=== PATIENT | female | born 1940 | race Caucasian/White ===

== ENCOUNTER 2017-05-04 22:28 | Emergency (ER) | payer OTHER, BC ==
[2017-05-04 22:52] VITALS: BP 118/60; PULSE 87; TEMP 97.8; BMI 26.5
--- NOTE | 2017-05-04 22:55 | PDOC ---
History of Present Illness - General Chief Complaint: Injury Stated Complaint: FALL Time Seen by Provider: 05/04/17 22:54 - History of Present Illness Initial Comments: 05/04/17 22:54 Ms. De La Vega is a 76 yo female with a significant past medical history of recent fall yesterday who presents to the emergency department following a second fall this evening after she had some benadryl for a cold and woke up in the middle of the night to fix her bed. Per sister she did not lose conciousness but was "groggy" during the 2nd fall. Patient does not recall 2nd fall. The patient denies chest pain, shortness of breath, headache and dizziness. Denies fever, chills, nausea, vomit, diarrhea and constipation. Denies dysuria, frequency, urgency and hematuria. Allergies: NKDA Past surgical history: Denies 05/04/17 23:32 Past History - Past Medical History Allergies/Adverse Reactions: Allergies Allergy/AdvReac Type Severity Reaction Status Date / Time No Known Drug Allergies Allergy Verified 05/04/17 22:41 Home Medications: Ambulatory Orders Diphenhydra/Phenyleph/Acetamin [Delsym Cough+Cold Nighttime Lq] 10 ml PO QID 07/09 Diphenhydramine [Benadryl -] 50 mg PO ONCE 05/04/17 Anemia: No Asthma: No Cancer: Yes (LEFT BREAST CA LUMPECTOMY 1990) Cardiac Disorders: No CVA: No COPD: No CHF: No Dementia: No Diabetes: No GI Disorders: No Disorders: No HTN: No Hypercholesterolemia: No Liver Disease: No Seizures: No Thyroid Disease: No Other medical history: forgetful, hard of hearing - Surgical History Abdominal Surgery: No Appendectomy: No Cardiac Surgery: No Cholecystectomy: No Lung Surgery: No Neurologic Surgery: No Orthopedic Surgery: No - Suicide/Smoking/Psychosocial Hx Smoking History: Never smoked Hx Alcohol Use: No Drug/Substance Use Hx: No Substance Use Type: None Hx Substance Use Treatment: No Review of Systems - Review of Systems Comments:: 05/04/17 22:56 GENERAL/CONSTITUTIONAL: No fever or chills. No weakness. HEAD, EYES, EARS, NOSE AND THROAT: No change in vision. No ear pain or discharge. No sore throat. CARDIOVASCULAR: No chest pain or shortness of breath RESPIRATORY: +Recent slight cough, No wheezing, or hemoptysis. GASTROINTESTINAL: No nausea, vomiting, diarrhea or constipation. GENITOURINARY: No dysuria, frequency, or change in urination. MUSCULOSKELETAL: No joint or muscle swelling or pain. No neck or back pain. SKIN: No rash NEUROLOGIC: No headache, vertigo, loss of consciousness, or change in strength/ sensation. ENDOCRINE: No increased thirst. No abnormal weight change HEMATOLOGIC/LYMPHATIC: No anemia, easy bleeding, or history of blood clots. ALLERGIC/IMMUNOLOGIC: No hives or skin allergy. *Physical Exam - Vital Signs Last Vital Signs Temp Pulse Resp BP Pulse Ox 97.8 F 87 18 118/60 98 05/04/17 22:43 05/04/17 22:43 05/04/17 22:43 05/04/17 22:43 05/04/17 22:43 - Physical Exam Comments: 05/04/17 22:57 GENERAL: Awake, alert, and fully oriented, in no acute distress HEAD: +Signs of recent fall with abbrasions to nose and cheek. Well healing and 1 day old. Normocephalic EYES: PERRLA, EOMI, sclera anicteric, conjunctiva clear ENT: Auricles normal inspection, hearing grossly normal, nares patent, oropharynx clear without exudates. Moist mucosa NECK: Normal ROM, supple, no lymphadenopathy, JVD, or masses LUNGS: No distress, speaks full sentences, clear to auscultation bilaterally HEART: Regular rate and rhythm, normal S1 and S2, no murmurs, rubs or gallops, peripheral pulses normal and equal bilaterally. ABDOMEN: Soft, nontender, normoactive bowel sounds. No guarding, no rebound. No masses EXTREMITIES: Normal inspection, Normal range of motion, no edema. No clubbing or cyanosis. NEUROLOGICAL: Cranial nerves II through XII grossly intact. Normal speech, normal gait, no focal sensorimotor deficits SKIN: Warm, Dry, normal turgor, no rashes or lesions noted. ED Treatment Course - LABORATORY CBC & Chemistry Diagram: 05/04/17 23:30 05/04/17 23:19 Medical Decision Making - Medical Decision Making 05/04/17 23:36 Ms. De La Vega is resting comfortably in bed and said to be at baseline by sister. Observed to successfully ambulate; in no acute distress. Will r/o cardiac pathology as this is 2nd fall in 2 days. *DC/Admit/Observation/Transfer Diagnosis at time of Disposition: Fall Qualifiers: Encounter type: initial encounter Qualified Code(s): W19.XXXA - Unspecified fall, initial encounter; W19.XXXA - Unspecified fall, initial encounter Contusion Qualifiers: Encounter type: initial encounter Contusion area: head Contusion of head detail : unspecified part of head Qualified Code(s): S00.93XA - Contusion of unspecified part of head, initial encounter; S00.93XA - Contusion of unspecified part of head, initial encounter - Referrals Referrals: Melina Samson [Primary Care Provider] - - Patient Instructions Printed Discharge Instructions: How to Prevent Falls Additional Instructions: Please follow up with Dr. Samson in the morning, Return if any problems
--- NOTE | 2017-05-04 23:32 | PDOC ---
Attending Attestation - HPI HPI: 05/04/17 23:38 The patient is a 76-year-old female NADEGE with no significant past medical history, and presents to the emergency department s/p second fall in two days. She reports she had a mechanical fall yesterday. Her sister gave the patient Benadryl tonight for a cold before going to bed, and the patient states she fell after waking up in the middle of the night to fix the bed. As per sister, the patient did not lose consciousness and denies any acute head trauma. The patient denies chest pain, shortness of breath, and headache. The patient denies fever, chills, nausea, vomit, diarrhea and constipation. The patient denies dysuria, frequency, urgency and hematuria. Allergies: NKDA Past Surgical History: None reported Social History: No toxic habits reported PCP: Dr. Melina Samson <Roberta Otero - Last Filed: 05/04/17 23:37> - Resident Resident Name: Javed Rowley - ED Attending Attestation I have performed the following: I have examined & evaluated the patient, The case was reviewed & discussed with the resident, I agree w/resident's findings & plan, Exceptions are as noted - Physicial Exam PE: 05/04/17 23:34 *Physical Exam General Appearance: Yes: Appropriately Dressed. No: Apparent Distress, Intoxicated HEENT: positive: EOMI, DYLAN, Normal ENT Inspection, Normal Voice, TMs Normal, Pharynx Normal. negative: Pale Conjunctivae, Photophobia, Scleral Icterus (R), Scleral Icterus (L) Neck: positive: Trachea midline, Normal Thyroid, Supple. negative: Tender, Rigid, Carotid bruit, Stridor, Lymphadenopathy (R), Lymphadenopathy (L), Thyromegaly Respiratory/Chest: positive: Lungs Clear, Normal Breath Sounds. negative: Chest Tender, Respiratory Distress, Accessory Muscle Use, Labored Respiration, RES, Crackles, Rales, Rhonchi, Stridor, Wheezing, Dullness Cardiovascular: positive: Regular Rhythm, Regular Rate, S1, S2. negative: Edema , JVD, Murmur, Bradycardia, Tachycardia Vascular Pulses: Dorsalis-Pedis (R): 2+, Doralis-Pedis (L): 2+ Gastrointestinal/Abdominal: positive: Normal Bowel Sounds, Flat, Soft. negative : Tender, Organomegaly, Pulsatile Mass, Increased Bowel Sounds, Decreased BS, Distended, Guarding, Rebound, Hernia, Hepatomegaly, Spleenomegaly Lymphatic: negative: Adenopathy, Tenderness Musculoskeletal: positive: Normal Inspection. negative: CVA Tenderness, Decreased Range of Motion Extremity: positive: Normal Capillary Refill, Normal Inspection, Normal Range of Motion, Pelvis Stable. negative: Tender, Pedal Edema, Swelling, Erythema Integumentary: positive: Normal Color, Dry, Warm. negative: Cyanotic, Erythema , Jaundice, Rash Neurologic: positive: area intelligence technician II-XII NML intact, Fully Oriented, Alert, Normal Mood/ Affect, Motor Strength 5/5. negative: EOM Palsy, Facial Droop, Sensory Deficit <Pradeep Cummings - Last Filed: 05/05/17 01:08> Discharge Disposition - Discharge Dispostion Last Admission D/C Date: 09/14/12 Admit: No <Pradeep Cummings - Last Filed: 05/05/17 01:08> - Diagnosis Fall Qualifiers: Encounter type: initial encounter Qualified Code(s): W19.XXXA - Unspecified fall, initial encounter; W19.XXXA - Unspecified fall, initial encounter Contusion Qualifiers: Encounter type: initial encounter Contusion area: head - Discharge Dispostion Disposition: HOME Condition at time of disposition: Stable - Patient Instructions Printed Discharge Instructions: How to Prevent Falls Additional Instructions: Please follow up with Dr. Samson in the morning, Return if any problems
[2017-05-04 23:39] LABS: BASOPHIL 0.4 % (0-2.0); EOSINOPHIL 0.6 % (0-4.5); MCH 29.6 pg (25.7-33.7); MCHC 33.8 g/dl (32.0-36.0); MEAN CELL VOLUME 87.6 fl (80-96); MEAN PLT VOLUME 8.1 fl (7.5-11.1); PLATELET COUNT 118 K/MM3 (134-434); RDW 13.5 % (11.6-15.6); WHITE BLOOD COUNT 9.2 K/mm3 (4.0-10.0)
[2017-05-05 00:03] LABS: ALBUMIN 3.5 g/dl (3.4-5.0); ANION GAP 9 (8-16); CALCIUM 8.5 mg/dL (8.5-10.1); CO2 25 mmol/L (21-32); CREATININE 0.7 mg/dL (0.55-1.02); GLUCOSE,RANDOM 114 mg/dL (74-106); SGOT/AST 12 U/L (15-37); SGPT/ALT 20 U/L (12-78)
[2017-05-05 00:06] LABS: ALK PHOS 66 U/L (45-117); BILIRUBIN,TOTAL 0.9 mg/dL (0.2-1.0); CPK 63 IU/L (26-192); TOT PROT 6.4 g/dl (6.4-8.2); TROPONIN I < 0.02 ng/ml (0.00-0.05)
[2017-05-05 00:54] LABS: URINE APPEARANCE CLEAR; URINE BILIRUBIN NEGATIVE (NEGATIVE); URINE BLOOD 1+ (NEGATIVE); URINE COLOR YELLOW; URINE GLUCOSE (UA) NEGATIVE (NEGATIVE); URINE KETONE NEGATIVE (NEGATIVE); URINE NITRITE NEGATIVE (NEGATIVE); URINE PROTEIN NEGATIVE (NEGATIVE); URINE UROBILINOGEN NEGATIVE mg/dL (0.2-1.0)
[2017-05-05 00:58] LABS: URINE MUCUS RARE; URINE RBC 1 /hpf (0-3)
[2017-05-05 08:55] LABS: URINE LEUK ESTERASE 1+ (NEGATIVE)
--- NOTE | 2017-05-05 09:05 | EKG ---
Test Reason : Blood Pressure : / mmHG Vent. Rate : 081 BPM Atrial Rate : 081 BPM P-R Int : 164 ms QRS Dur : 072 ms QT Int : 366 ms P-R-T Axes : 046 035 036 degrees QTc Int : 425 ms NORMAL SINUS RHYTHM NORMAL ECG WHEN COMPARED WITH ECG OF 16-AUG-2016 06:49, NO SIGNIFICANT CHANGE WAS FOUND Confirmed by LEONCIO RUDOLPH MD ([id number]) on 05/05/2017 9:05:38 AM Referred By: Confirmed By:LEONCIO RUDOLPH MD
== END 2017-05-05 01:13 | disposition home or self-care (01) ==
LOC: JER 22:28
DX: S09.93XA Unspecified injury of face, initial encounter (principal); Z85.3 Personal history of malignant neoplasm of breast; W18.39XA Other fall on same level, initial encounter; Y93.89 Activity, other specified; Y92.9 Unspecified place or not applicable
CPT/HCPCS: 36415; 70450-TC; 80053; 81003; 81015; 82550; 84484; 85025; 87086; 93005; 93010; 99282-25

== ENCOUNTER 2018-04-22 18:40 | Emergency (ER) | payer OTHER, BC ==
[2018-04-22 18:46] VITALS: BP 152/69; PULSE 68; TEMP 98.5; BMI 27.1
--- NOTE | 2018-04-22 18:56 | PDOC ---
History of Present Illness - General Chief Complaint: Injury Stated Complaint: HIP INJURY Time Seen by Provider: 04/22/18 18:55 Past History - Past Medical History Allergies/Adverse Reactions: Allergies Allergy/AdvReac Type Severity Reaction Status Date / Time No Known Drug Allergies Allergy Verified 04/22/18 18:46 Home Medications: Ambulatory Orders Diphenhydra/Phenyleph/Acetamin [Delsym Cough+Cold Nighttime Lq] 10 ml PO QID 07/09 Diphenhydramine [Benadryl -] 50 mg PO ONCE 05/04/17 Anemia: No Asthma: No Cancer: Yes (LEFT BREAST CA LUMPECTOMY 1990) Cardiac Disorders: No CVA: No COPD: No CHF: No Dementia: No Diabetes: No GI Disorders: No Disorders: No HTN: No Hypercholesterolemia: No Liver Disease: No Seizures: No Thyroid Disease: No - Surgical History Abdominal Surgery: No Appendectomy: No Cardiac Surgery: No Cholecystectomy: No Lung Surgery: No Neurologic Surgery: No Orthopedic Surgery: No - Suicide/Smoking/Psychosocial Hx Smoking History: Never smoked Hx Alcohol Use: No Drug/Substance Use Hx: No Substance Use Type: None Hx Substance Use Treatment: No *Physical Exam - Vital Signs Last Vital Signs Temp Pulse Resp BP Pulse Ox 98.5 F 68 18 152/69 98 04/22/18 18:41 04/22/18 18:41 04/22/18 18:41 04/22/18 18:41 04/22/18 18:41
[2018-04-22] MEDS ORDERED: NAPROXEN 250 MG TABLET (FP) PO ONE (19:15)
[2018-04-22] MEDS ORDERED: ACETAMINOPHEN 325 MG TABLET (FP) PO ONE (19:15)
--- NOTE | 2018-04-22 19:23 | PDOC ---
History of Present Illness - General Chief Complaint: Injury Stated Complaint: HIP INJURY Time Seen by Provider: 04/22/18 18:55 - History of Present Illness Initial Comments: 04/22/18 19:16 77 yo F with h/o Parkinson's disease who p/w left hip pain. Patient reports left hip pain this evening following left lower extremity twisting motion with left foot firmly planted on ground. Denies fall, head/neck/back trauma, LOC. Now with sharp pain, and pressure sensation of let hip. Patient reports falling one month ago with initial injury of left hip. Reports re-exacerbation injury , with repeat radiograph in office (04/19/2018), and n fracture or dislocation. Patient on Diclofenac with no improvement in symptoms. Patient has been advised to begin pyhysical therapy, but has not yet started therapy. Lives at home with relative. Typically ambulates around house unassisted. Patient denies N/V, F,C, cough, orthopnea, PND, wheezing, leg swelling, CP, SOB , urinary complaints, abdominal pain, diarrhea, constipation, lightheadedness, weakness, sensory changes. PMHx: as noted above ROS: as noted SHx: Denies Etoh, IVDA, tobacco Allergies: NKDA Past History - Past Medical History Allergies/Adverse Reactions: Allergies Allergy/AdvReac Type Severity Reaction Status Date / Time No Known Drug Allergies Allergy Verified 04/22/18 18:46 Home Medications: Ambulatory Orders Diclofenac Sodium [Diclofenac Sodium ER] 100 mg PO DAILY 04/22/18 Walker [Ultra-Light Rollator] 1 each ONCE #1 each 04/22/18 Anemia: No Asthma: No Cancer: Yes (LEFT BREAST CA LUMPECTOMY 1990) Cardiac Disorders: No CVA: No COPD: No CHF: No Dementia: No Diabetes: No GI Disorders: No Disorders: No HTN: No Hypercholesterolemia: No Liver Disease: No Seizures: No Thyroid Disease: No - Surgical History Abdominal Surgery: No Appendectomy: No Cardiac Surgery: No Cholecystectomy: No Lung Surgery: No Neurologic Surgery: No Orthopedic Surgery: No - Suicide/Smoking/Psychosocial Hx Smoking History: Never smoked Hx Alcohol Use: No Drug/Substance Use Hx: No Substance Use Type: None Hx Substance Use Treatment: No Review of Systems - Review of Systems Comments:: 04/22/18 19:26 GENERAL/CONSTITUTIONAL: No fever or chills. No weakness. HEAD, EYES, EARS, NOSE AND THROAT: No change in vision. No ear pain or discharge. No sore throat. CARDIOVASCULAR: No chest pain or shortness of breath RESPIRATORY: No cough, wheezing, or hemoptysis. GASTROINTESTINAL: No nausea, vomiting, diarrhea or constipation. GENITOURINARY: No dysuria, frequency, or change in urination. MUSCULOSKELETAL: + Left hip pain. No neck or back pain. SKIN: No rash NEUROLOGIC: No headache, vertigo, loss of consciousness, or change in strength/ sensation. ENDOCRINE: No increased thirst. No abnormal weight change HEMATOLOGIC/LYMPHATIC: No anemia, easy bleeding, or history of blood clots. ALLERGIC/IMMUNOLOGIC: No hives or skin allergy. *Physical Exam - Vital Signs Last Vital Signs Temp Pulse Resp BP Pulse Ox 98.5 F 68 18 152/69 98 04/22/18 18:41 04/22/18 18:41 04/22/18 18:41 04/22/18 18:41 04/22/18 18:41 - Physical Exam Comments: 04/22/18 19:26 GENERAL: Awake, alert, and fully oriented, in no acute distress HEAD: No signs of trauma, normocephalic, atraumatic EYES: PERRLA, EOMI, sclera anicteric, conjunctiva clear ENT: Hearing grossly normal, nares patent, oropharynx clear without exudates. Moist mucosa NECK: Normal ROM, supple, no lymphadenopathy, JVD, or masses LUNGS: No distress, speaks full sentences, clear to auscultation bilaterally HEART: Regular rate and rhythm, normal S1 and S2, no murmurs, rubs or gallops, peripheral pulses normal and equal bilaterally. EXTREMITIES : Normal inspection, Normal range of motion, no edema. No clubbing or cyanosis. HIP: + Left hip ttp at greater trochanter. Absent effusion or limb length discrepancy. Pain with hip flexion. Asbent pain with hip abduction/adduction. 2 + DP and PT pulses. 5/5 strength at left knee felxion/extension, and plantar flexion/dorsiflexion. SKIN: Warm, Dry, normal turgor, no rashes or lesions noted Medical Decision Making - Medical Decision Making 04/22/18 19:26 77 yo F with h/o Parkinson's disease who p/w left hip pain. VSS, AF. + Left hip ttp at greater trochanter. Absent effusion, limb length discrepancy. Pain with hip flexion. 5/5 strength with active ROM. R/o Left hip fracture/ dislocation. LLE neurovasculalry intact. Likely MSK related pain. Hip strain/ sprain. ED Course: Tylenol, Naproxen LEFT HIP/PELVIS RAD CT HIP/PELVIS 04/22/18 22:41 CT HIP/PELVIS: There is acute, displaced fracture of the left iliac crest. There is associated thickening of the left iliac is muscle suggesting muscular hematoma. There is no acute hip fracture or dislocation seen. The pubic rami are intact. There is diffuse bony demineralization. There is degenerative narrowing of the hip joint spaces. Urinary bladder is grossly intact. Contacted orthopedics rehab consultant answering service. VADIM wilburn. Awaiting call back 04/22/18 22:55 Per VADIM: Patient with stable fracture. Advised f/u with orthopedics. No indication for surgery. Recommends PT. 04/22/18 22:56 Patient stable for d/c with return precautions. Advised to ambulate with walker and follow up with PT. *DC/Admit/Observation/Transfer Diagnosis at time of Disposition: Hip pain Qualifiers: Laterality: left Qualified Code(s): M25.552 - Pain in left hip - Discharge Dispostion Condition at time of disposition: Stable Decision to Admit order: No - Prescriptions Prescriptions: Walker [Ultra-Light Rollator] 1 each MC ONCE #1 each - Referrals Referrals: Gregor Apodaca MD [Staff Physician] - - Patient Instructions Printed Discharge Instructions: DI for Hip Pain Additional Instructions: Please return to the emergency department with any new or worsening symptoms or concerns. Please follow up with your primary care physician within 72 hours. Can take Diclofenac as needed for pain. Please follow up with orthopedics within 48 hours for stable fracture of the left iliac crest. Please follow up with physical therapy as directed and ambulate with walker. - Post Discharge Activity - Attestations Physician Attestion: 04/22/18 19:55 I attest to the information provided in this note.
[2018-04-22] MEDS ORDERED: ACETAMINOPHEN 325 MG TABLET (FP) ONE (19:27)
[2018-04-22] MEDS ORDERED: NAPROXEN 500 MG TABLET (FP) ONE (19:28)
--- NOTE | 2018-04-22 19:49 | PDOC ---
Attending Attestation - Resident Resident Name: Jerry Swanson - ED Attending Attestation I have performed the following: I have examined & evaluated the patient, The case was reviewed & discussed with the resident, I agree w/resident's findings & plan, Exceptions are as noted <Shannon Elizondo - Last Filed: 04/22/18 19:48> - HPI HPI: 04/22/18 21:51 The patient is a 77 year old Female with a significant past medical history of Parkinson's disease who presents to the ED with complaint of pain to her left hip this evening after accidentally twisting her LLE while her left foot was planted on the ground. The patient denies fall. She reports sharp pain to the left hip. Patient reports a prior injury to the left hip after falling one month. The patient states she is taking Diclofenac with no improvement in symptoms. She states she typically ambulates around house unassisted. The patient denies chest pain, shortness of breath, headache and dizziness. The patient denies fever, chills, nausea, vomit, diarrhea and constipation. The patient denies dysuria, frequency, urgency and hematuria. She denies incontinence. Social Hx: Denies Etoh, IVDA, tobacco Allergies: NKDA - Physicial Exam PE: 04/22/18 21:55 GENERAL: Well-appearing, well-nourished. No apparent distress. HEENT: Normocephalic, atraumatic. PERRL, EOM intact. CARDIOVASCULAR: Normal S1, S2. Regular rate and rhythm. PULMONARY: Clear to auscultation bilaterally. ABDOMEN: Soft, non-distended, non-tender. EXTREMITIES: Normal ROM in all four extremities. No gross deformities. L Hip: +ttp at Left greater trochanter. No effusion or limb length discrepancy. Pain elicited with hip flexion. No pain with hip abduction/ adduction. 2+ DP and PT pulses. 5/5 strength at left knee flexion/extension and plantar flexion/dorsiflexion. SKIN: Warm, dry. No rash NEUROLOGICAL: No focal neurological deficits. - Medical Decision Making 04/22/18 21:55 Documentation prepared by Yessica Jang, acting as medical communication specialist for Shannon Elizondo MD 04/22/2018 22:12 EST EXAM: CT pelvis and hips without contrast HISTORY: Left hip pain COMPARISON: None. FINDINGS: There is acute, displaced fracture of the left iliac crest. There is associated thickening of the left iliac is muscle suggesting muscular hematoma. There is no acute hip fracture or dislocation seen. The pubic rami are intact. There is diffuse bony demineralization. There is degenerative narrowing of the hip joint spaces. Urinary bladder is grossly intact. THIS DOCUMENT HAS BEEN ELECTRONICALLY SIGNED Slim Leung MD 04/22/18 23:38 Consulted ortho and the injury does not require surgical intervention. Plan for Physical Therapy. <Yessica Jang - Last Filed: 04/22/18 23:38>
[2018-04-23] MEDS ORDERED: KETOROLAC TROMETHAMINE 60 MG/2 ML VIAL IM ONE (00:02)
[2018-04-23] MEDS ORDERED: KETOROLAC TROMETHAMINE 60 MG/2 ML VIAL ONE (00:04)
== END 2018-04-23 00:20 | disposition home or self-care (01) ==
LOC: JER 18:40
PROC: 3E0233Z Introduction of Anti-inflammatory into Muscle, Percutaneous Approach (ICD-10-PCS; principal; 2018-04-22)
DX: S32.392A Other fracture of left ilium, initial encounter for closed fracture (principal); X50.1XXA Overexertion from prolonged static or awkward postures, initial encounter; Y93.89 Activity, other specified; Y92.018 Other place in single-family (private) house as the place of occurrence of the external cause; Y99.8 Other external cause status; Z85.3 Personal history of malignant neoplasm of breast
CPT/HCPCS: 73523-TC-FY; 73700-TC-RT; 96372; 99282-25

== ENCOUNTER 2018-07-02 08:13 | Emergency (ER) | payer OTHER, BC ==
--- NOTE | 2018-07-02 08:18 | PDOC ---
History of Present Illness - General Chief Complaint: Pain Stated Complaint: LEFT HIP PAIN Time Seen by Provider: 07/02/18 08:18 History Source: Patient Exam Limitations: No Limitations - History of Present Illness Initial Comments: 77 yo F history Parkinson's disease presents with L hip/pelvis pain. She states that she fractured her pelvis in March when she fell. She had a subsequent fall in April followed by more pain. She has followed up with Dr. Kaiser, who said that there was no intervention. She has been doing PT. She c/o severe pain today, making it difficult to walk and stand. She has been ambulating without assistance, however. She has been taking tylenol and diclofenac, but still having pain. She denies any falls, however, she did walk much more than usual yesterday. Past History - Past Medical History Allergies/Adverse Reactions: Allergies Allergy/AdvReac Type Severity Reaction Status Date / Time No Known Drug Allergies Allergy Verified 07/02/18 08:14 Home Medications: Ambulatory Orders Diclofenac Sodium [Diclofenac Sodium ER] 100 mg PO DAILY 04/22/18 Carbidopa/Levodopa 25/100 [Sinemet 25/100 -] 1 each PO TID 07/02/18 Tramadol HCl 1 - 2 tab PO Q6H PRN #20 tablet MDD 8 tabs 07/02/18 Anemia: No Asthma: No Cancer: Yes (LEFT BREAST CA LUMPECTOMY 1990) Cardiac Disorders: No CVA: No COPD: No CHF: No Dementia: No Diabetes: No GI Disorders: No Disorders: No HTN: No Hypercholesterolemia: No Liver Disease: No Seizures: No Thyroid Disease: No - Surgical History Abdominal Surgery: No Appendectomy: No Cardiac Surgery: No Cholecystectomy: No Lung Surgery: No Neurologic Surgery: No Orthopedic Surgery: No - Suicide/Smoking/Psychosocial Hx Smoking History: Never smoked Hx Alcohol Use: No Drug/Substance Use Hx: No Substance Use Type: None Hx Substance Use Treatment: No Review of Systems - Review of Systems Able to Perform ROS?: Yes Comments:: GENERAL/CONSTITUTIONAL: No fever or chills. No weakness. HEAD, EYES, EARS, NOSE AND THROAT: No change in vision. No ear pain or discharge. No sore throat. CARDIOVASCULAR: No chest pain or shortness of breath. RESPIRATORY: No cough, wheezing, or hemoptysis. GASTROINTESTINAL: No nausea, vomiting, diarrhea or constipation. GENITOURINARY: No dysuria, frequency, or change in urination. MUSCULOSKELETAL: +Left hip pain. No neck or back pain. SKIN: No rash NEUROLOGIC: No headache, vertigo, loss of consciousness, or change in strength/ sensation. ENDOCRINE: No increased thirst. No abnormal weight change. HEMATOLOGIC/LYMPHATIC: No anemia, easy bleeding, or history of blood clots. ALLERGIC/IMMUNOLOGIC: No hives or skin allergy. *Physical Exam - Physical Exam Comments: GENERAL: Awake, alert, and fully oriented, in no acute distress HEAD: No signs of trauma EYES: PERRLA, EOMI, sclera anicteric, conjunctiva clear ENT: Auricles normal inspection, hearing grossly normal, nares patent, oropharynx clear without exudates. Moist mucosa NECK: Normal ROM, supple, no lymphadenopathy, JVD, or masses LUNGS: Breath sounds equal, clear to auscultation bilaterally. No wheezes, and no crackles HEART: Regular rate and rhythm, normal S1 and S2, no murmurs, rubs or gallops ABDOMEN: Soft, nontender, normoactive bowel sounds. No guarding, no rebound. No masses EXTREMITIES: L hip with tenderness to the joint and the iliac crest. Remainder of extremities with normal range of motion, no edema. No clubbing or cyanosis. No cords, erythema, or tenderness NEUROLOGICAL: Cranial nerves II through XII grossly intact. Normal speech. Motor and sensation intact. +Antalgic gait. SKIN: Warm, Dry, normal turgor, no rashes or lesions noted. Medical Decision Making - Medical Decision Making 07/02/18 09:16 XR reviewed. There is healing of the prior fracture, but no acute findings. Pt given tramadol for pain, as the tylenol and NSAID were not working (and she did not tolerate oxycodone well in the past). Will monitor for any side effects in ED, then DC home if improved. 07/02/18 10:17 Pt with no acute changes on XR. However, based on severity of original injury, it is likely that she is having pain from overexerting herself yesterday. She reports some improvement with tramadol, no adverse side effects. Stable for DC home. *DC/Admit/Observation/Transfer Diagnosis at time of Disposition: Hip pain Qualifiers: Laterality: left Qualified Code(s): M25.552 - Pain in left hip - Discharge Dispostion Disposition: HOME Condition at time of disposition: Stable Decision to Admit order: No - Prescriptions Prescriptions: Tramadol HCl 1 - 2 tab PO Q6H PRN #20 tablet MDD 8 tabs PRN Reason: Severe Pain - Referrals - Patient Instructions Printed Discharge Instructions: DI for Hip Pain - Post Discharge Activity
[2018-07-02 08:26] VITALS: BP 129/69; PULSE 68; TEMP 97.8; BMI 25.7
[2018-07-02] MEDS ORDERED: traMADol HCL 50 MG TABLET PO ONE (09:16)
[2018-07-02] MEDS ORDERED: traMADol HCL 50 MG TABLET ONE (09:19)
== END 2018-07-02 10:20 | disposition home or self-care (01) ==
LOC: FER 08:13
DX: M25.552 Pain in left hip (principal); Z85.3 Personal history of malignant neoplasm of breast
CPT/HCPCS: 73523-TC-FY; 99283-25

== ENCOUNTER 2024-03-01 15:46 | Emergency (ER) | payer OTHER, BC ==
[2024-03-01 16:31] VITALS: BMI 25.1
[2024-03-01] MEDS ORDERED: ACETAMINOPHEN INJECTION 100 ML IVPB ONE (16:33)
[2024-03-01] MEDS: ACETAMINOPHEN 1000 MG/100 ML BAG IVPB ONE (16:39)
[2024-03-01] MEDS: SODIUM CHLORIDE 1,000 ML IV SCH (16:39)
[2024-03-01 17:01] LABS: INR 1.25 (0.83-1.09); PROTHROMBIN TIME (PATIENT) 14.2 SEC (9.7-13.0)
[2024-03-01 17:03] LABS: HEMATOCRIT 36.8 % (32.4-45.2); HEMOGLOBIN 11.9 G/dL (10.7-15.3); MCH 29.4 pg (25.7-33.7); MCHC 32.2 g/dl (32.0-36.0); MEAN CELL VOLUME 91.3 fl (80-96); MEAN PLT VOLUME 9.2 fl (7.5-11.1); PLATELET COUNT 127.2 10^3/uL (134-434); RBC 4.03 10^6/uL (3.60-5.2); RDW 15.6 % (11.6-15.6); WHITE BLOOD COUNT 6.4 10^3/uL (4.0-10.8)
[2024-03-01 17:04] LABS: ACTIVATED PTT 22.5 SECONDS (25.2-36.5)
[2024-03-01 17:13] LABS: ALBUMIN 3.8 g/dl (3.4-5.0); ALK PHOS 170 U/L (45-117); ANION GAP 12 mmol/L (4-13); BILIRUBIN,TOTAL 1.9 mg/dl (0.2-1); CALCIUM 9.1 mg/dl (8.5-10.1); CHLORIDE 103 mmol/L (98-107); CHOLESTEROL 91 mg/dL (50-200); CO2 21 mmol/L (21-32); CREATININE 0.8 mg/dl (0.6-1.3); GLUCOSE,RANDOM 148 mg/dl (74-106); HDL CHOLESTEROL 44 mg/dL (40-60); LDL CHOLESTEROL (ONLY DFH) 29 mg/dL (5-100); POTASSIUM 4.3 mmol/L (3.5-5.1); SGOT/AST 22 U/L (15-37); SGPT/ALT 16 U/L (7-52); SODIUM 136 mmol/L (136-145)
[2024-03-01 17:42] LABS: PLATELET ESTIMATE SLT DECREASE
[2024-03-01 19:33] LABS: N-TERMINAL BNP 691.4 pg/ml (5-450)
[2024-03-02] MEDS ORDERED: ACETAMINOPHEN INJECTION 100 ML IVPB ONE (00:54)
[2024-03-02] MEDS: ACETAMINOPHEN 1000 MG/100 ML BAG IVPB ONE (00:58)
[2024-03-02 01:09] VITALS: BP 128/60; PULSE 85; RESP 20
[2024-03-02 01:58] VITALS: TEMP 99.3
== END 2024-03-02 02:22 | disposition short-term general hospital (02) ==
LOC: FER 15:46
PROC: 3E033NZ Introduction of Analgesics, Hypnotics, Sedatives into Peripheral Vein, Percutaneous Approach (ICD-10-PCS; principal; 2024-03-01)
PROC: 3E033NZ Introduction of Analgesics, Hypnotics, Sedatives into Peripheral Vein, Percutaneous Approach (ICD-10-PCS; 2024-03-01)
DX: S12.9XXA Fracture of neck, unspecified, initial encounter (principal); R53.1 Weakness; W19.XXXA Unspecified fall, initial encounter; U07.1 COVID-19
CPT/HCPCS: 0241U-QW; 36415; 70450-TC; 70486-TC; 70496-TC; 70498-TC; 71045-TC-FY; 72125-TC; 72170-TC-FY; 73090-TC-RT-FY; 80053; 80061; 81003; 81015; 82550; 83036; 83880; 84443; 84484; 85027; 85610; 85730; 86850; 86900; 86901; 87040; 87086; 87186; 93005; 99285-25; J0131